=== PATIENT | female | born 1995 | race Two or more races ===

== ENCOUNTER 2017-02-10 13:31 | Emergency (ER) | payer BC, OTHER ==
[~2017-02-10] VITALS: Ht 162.6 cm; Wt 65.8 kg
[2017-02-10 14:55] VITALS: BP 122/66
== END 2017-02-10 15:15 | disposition home or self-care (01) ==
LOC: M ED 13:31
DX: F53 Mental and behavioral disorders associated with the puerperium, not elsewhere classified (principal); Z88.0 Allergy status to penicillin

== ENCOUNTER 2017-07-20 23:37 | Emergency (ER) | payer BC, OTHER ==
[~2017-07-20] VITALS: Ht 162.6 cm; Wt 61.4 kg
[2017-07-20] MEDS ORDERED: CITA20TA4 (23:44)
[2017-07-21] MEDS ORDERED: NITROFURANTOIN (MACROBID) 100 MG CAP PO ONE (01:00)
[2017-07-21] MEDS ORDERED: MACR100C43 PO (01:01)
[2017-07-21 01:06] VITALS: BP 121/65
== END 2017-07-21 01:09 | disposition home or self-care (01) ==
LOC: M ED 23:37
DX: O23.40 Unspecified infection of urinary tract in pregnancy, unspecified trimester (principal); Z32.01 Encounter for pregnancy test, result positive; Z3A.00 Weeks of gestation of pregnancy not specified; O99.340 Other mental disorders complicating pregnancy, unspecified trimester; Z79.899 Other long term (current) drug therapy; Z88.0 Allergy status to penicillin